=== PATIENT | female | born 1985 | race Caucasian/White ===

== ENCOUNTER 2018-11-14 07:56 | Emergency (ER) | payer OTHER ==
[~2018-11-14] VITALS: Ht 154.9 cm; Wt 68.6 kg
[2018-11-14 08:00] VITALS: BP 159/92; Ht 154.9 cm; Wt 68.6 kg
== END 2018-11-14 08:56 | disposition home or self-care (01) ==
LOC: ED 07:56
DX: R30.0 Dysuria (principal); R68.83 Chills (without fever); G51.0 Bell's palsy